=== PATIENT | female | born 1955 | race Caucasian/White ===

== ENCOUNTER → 2017-12-02 13:42 | Outpatient (POV) | payer OTHER, SELFPAY | PROVIDERS: Family Provider Family Medicine; PCP Family Medicine | DX: Z00.00 Encounter for general adult medical examination without abnormal findings (principal) ==

== ENCOUNTER → 2018-01-07 09:25 | Outpatient (POV) | payer SELFPAY | PROVIDERS: Family Provider Family Medicine; PCP Family Medicine; Visit Provider Dermatology | DX: Z00.00 Encounter for general adult medical examination without abnormal findings (principal) ==

== ENCOUNTER → 2018-02-05 09:06 | Outpatient (CLI) | payer OTHER, SELFPAY ==
--- NOTE | 2018-02-05 09:15 | XR_ITS ---
XR DEXA axial skeleton HISTORY: ITS.REASON: OSTEOPENIA ORDERING PHYSICIAN: Naya Hermosillo MD PATIENT AGE: 62 years COMPARISON: None FINDINGS: The BMD measured at the left femoral neck is 0.942 g/cm squared with a T score of -0.7 . This is considered normal according to the World Health Organization criteria. Fracture risk is low. The L1-L4 density T score of 3.0 which is normal.. IMPRESSION: Normal bone density. Recommend follow-up exam in January 2020
== END ==
PROVIDERS: Family Provider Family Medicine; PCP Family Medicine; Visit Provider Family Medicine
DX: Z13.820 Encounter for screening for osteoporosis (principal); M85.89 Other specified disorders of bone density and structure, multiple sites
CPT/HCPCS: 77080

== ENCOUNTER 2018-03-25 08:00 | Day surgery (SDC) | payer OTHER, SELFPAY ==
[2018-03-24 09:15] VITALS: BMI 34.7
[2018-03-25] VITALS (15 sets, daily range): BP systolic 115–167; BP diastolic 63–94; PULSE 57–95; RESP 12–18; TEMP 36.2–36.7; O2SAT 95–100
--- NOTE | 2018-03-25 09:20 | HMH.SCOPE ---
- Procedure: Date: 03/25/18 Procedure Performed:: Colonoscopy Indications:: Screening colonoscopy Performing Provider:: Flo Baez MD Referring Provider:: Dr. Hermosillo Sedation:: IV sedation with 9 mg of Versed and 200 mcg of fentanyl Procedure:: After informed consent was obtained, the patient was taken to the endoscopy suite. IV sedation ensued after she was transferred to the left lateral decubitus position. Digital rectal exam revealed no significant abnormality. The colonoscope was placed in position. The entire colon was evaluated. Bowel preparation was moderate to poor with large volume irrigation and suctioning used to improve visualization. A fairly tortuous colon and significant lack of relaxation made visualization somewhat difficult. Scattered sigmoid diverticulosis noted. No polypoid or mass lesions were seen. The colonoscope was carefully removed and the patient was transferred to recovery. Findings:: Bowel preparation moderate to poor Tortuous colon Significant lack of relaxation Scattered sigmoid diverticulosis Specimens:: None Recommendations:: Repeat colonoscopy in 2-3 years secondary to tortuosity, limited bowel preparation, and lack of relaxation. Timing of future colonoscopies will likely be extended to 5-10 years if no significant abnormality noted on repeat evaluation. Complications:: No immediate Estimated blood obtained (mL): 0
== END 2018-03-25 09:52 | disposition home or self-care (01) ==
LOC: OUTP 08:01
PROVIDERS: Family Provider Family Medicine; PCP Family Medicine; Visit Provider Surgery
PROC: 0DJD8ZZ Inspection of Lower Intestinal Tract, Via Natural or Artificial Opening Endoscopic (ICD-10-PCS; CPT G0121; principal; 2018-03-25 08:30)
DX: Z12.11 Encounter for screening for malignant neoplasm of colon (principal); Q43.8 Other specified congenital malformations of intestine; K57.30 Diverticulosis of large intestine without perforation or abscess without bleeding
CPT/HCPCS: G0121

== ENCOUNTER → 2019-06-14 09:11 | Outpatient (CLI) | payer MEDICARE, SELFPAY ==
--- NOTE | 2019-06-14 | CA_ITS ---
PROCEDURE: 2-D M-mode and color Doppler study INDICATIONS FOR THE TEST: Chest pain COPD Heart Murmur+ Tobacco Smoking Palpitations Fatigue Syncope Edema Hypertension+Diabetes Mellitus Rheumatic Fever SOB [place] Obesity Hyperlipidemia+ Family History HD+ Additional History PATIENT INFORMATION HEIGHT: 65 WEIGHT: 211 GENDER: Female B/P: 141/72 2-D/M-MODE INTERPRETATION: 2-D MEASUREMENTS OBSERVED VALUES IN CMS Right Ventricular Dimension (RVDd) 3.5 Interventricular Septum (Thickness)(IVsd) 1.1 Left Ventricular Internal Dimensions(LVIDd) 3.9 Left Ventricular Posterior Wall (Thickness)(LVPWd) 0.9 Aortic Root 3.2 Aortic Cusp Separation 2.3 Left Atrial Dimensions (LAD) 2.9 2D 1. Left atrium is mildly enlarged, left ventricle is normal size, mild concentric left ventricular hypertrophy, visually estimated ejection fraction 55% with no regional wall motion abnormality. 2. The right atrium and right ventricle are mildly enlarged with normal contractility. 3. The aortic valve is thickened and calcified, leaflet continue to display mobility. 4. The mitral and tricuspid valve leaflets are minimally thickened. 5. The pulmonic valve is poorly present. 6. No significant pericardial effusion noted. DOPPLER INTERROGATION: Doppler interrogation of the aortic, mitral and tricuspid valvular presence of mild mitral and tricuspid regurgitation tricuspid regurgitation jet velocity is inadequate for calculation of the right ventricular systolic pressure, grade 1 diastolic dysfunction seen with tissue Doppler evidence of pressure. CONCLUSION: 1. Mildly enlarged left atrium, normal left ventricular size, mild concentric left ventricular visually estimated ejection fraction 55% with no regional wall motion abnormality. Grade 1 diastolic dysfunction seen with tissue Doppler evidence of raised left atrial pressure. 2. Mildly enlarged with normal contractility. 3. Thickened and calcified aortic valve without aortic stenosis aortic insufficiency. 4. Mild mitral and tricuspid regurgitation 5. No significant pericardial effusion noted.
== END ==
PROVIDERS: PCP Family Medicine; Visit Provider Family Medicine
DX: I50.21 Acute systolic (congestive) heart failure (principal)
CPT/HCPCS: 93306

== ENCOUNTER → 2019-11-29 13:04 | Outpatient (POV) | payer MEDICARE, SELFPAY | PROVIDERS: Visit Provider Dermatology | DX: Z00.00 Encounter for general adult medical examination without abnormal findings (principal) ==

== ENCOUNTER → 2021-02-22 08:59 | Outpatient (CLI) | payer MEDICARE, SELFPAY ==
--- NOTE | 2021-02-22 09:11 | MM_ITS ---
PROCEDURE: MM DIG SCREENING MAMM BI W/CAD Digital Breast Tomosynthesis Included CLINICAL INDICATION: FCBD There is no personal or family history of breast cancer. COMPARISON: MG DIGMAMMS MAMMOGRAM SCREEN-CLINICAL NURSE MANAGER N/C from 02/26/2006 MG DMSB DIG MAMM-SCREEN ASH from 03/24/2014 MG DMSB DIG MAMM-SCREEN ASH W/CAD from 12/25/2016 TECHNIQUE: Standard CC and MLO images and 3D Tomosynthesis was obtained. R2 CAD reviewed. FINDINGS: Scattered fibroglandular densities are seen throughout both breast and the findings are bilateral and symmetrical. There are multiple benign-appearing calcifications in each breast most of which appear to be typical of secretory disease. There is no new or suspicious lesion in either breast and no suspicious microcalcifications. There are fatty replaced nodes in both axilla. IMPRESSION: Fibrofatty parenchyma with no suspicious lesions seen BI-RAD Category: 2 Benign Finding(s) FOLLOW-UP: 1YR 1 Year Follow-up (A letter has been sent to the patient regarding results of the study.) Dictated by: Dr. Bulmaro German MD 02/25/2021 07:36 Dr. Bulmaro German MD in [place] 02/25/2021 07:36
--- NOTE | 2021-02-22 09:55 | XR_ITS ---
PROCEDURE: XR DEXA AXIAL SKELETON CLINICAL HISTORY: OSTEOPENIA COMPARISON: CR DEXAAX XR DEXA axial skeleton from 02/05/2018 FINDINGS: The right hip BMD is 0.755 with a T-score of -0.8. The left hip BMD is 0.752 with a T-score of -0.9. The lumbar spine BMD is 1.313 with a T-score of 2.4. Previously the lowest bone density within the left femoral neck with T-score of -0.7 IMPRESSION: This patient is considered normal according to the World Health Organization criteria. Fracture risk is low. Based on these results a follow-up exam is recommended in 2 year. Dictated by: Anil Brown MD 02/23/2021 13:33 Anil Brown MD in [place] 02/23/2021 13:33
== END ==
PROVIDERS: PCP Family Medicine; Visit Provider Family Medicine
DX: Z12.31 Encounter for screening mammogram for malignant neoplasm of breast (principal); Z78.0 Asymptomatic menopausal state
CPT/HCPCS: 77063; 77067; 77080

== ENCOUNTER → 2022-01-28 07:54 | Outpatient (CLI) | payer MEDICARE, SELFPAY ==
--- NOTE | 2022-01-28 | CA_ITS ---
APPROVED REPORT Exam: Exercise Treadmill Technologist: Jeny Treviño, Ht: 5 ft 6 in Wt: 196 lbs BSA: 1.98 m2 HR: 70 bpm BP: 137/77 mmHg Medical History Medications: Aspirin,,,,, Fish Oil,,,,, BisOPROLOL Fumarate,,,,, Stress Test Details Test: Prasanth HR Resting HR: 75 bpm Max Heart Rate (APMHR): 153.974792 bpm Max HR Achieved: 157 bpm Target HR (85% APMHR): 130.471916 bpm % of APMHR: 102.61 Recovery HR: 81 bpm BP Resting BP: 147/84 mmHg Max BP: 192/60 mmHg Recovery BP: 131.0/74.0 mmHg ECG Resting ECG: NSR, rightward axis Clinical Exercise duration: 06:00 min Highest Stage Achieved: Stage 1: 1.7 mph at 10% grade. Exercise capacity: 4.6 METs Stress ECG Conclusion Exercised 6:00 into stage I of Prasanth Protocol. (stage I held to completion.) Max HR: 157 % of PM: 130% Max BP: 192/60 MET's: 4.6 Test stopped Due to: SOA, Fatigue Symptoms: No CP. Arrhythmias/Ectopy: Occ PVC. ST-T Changes: Normal ST response to exercise. Conclusion: Normal GXT. Myoview images reported separately. Test Summary REST . . . . . . . Standing REST . . . . . . . Sitting REST . . . . . . . Standing REST 07:32 0.0 0.0 75 . 147/ 84 . . Stage 1 01:00 10.0 1.7 126 . . . . Stage 1 02:00 10.0 1.7 145 . . . . Stage 1 . . . . . . . Stage held Stage 1 03:00 10.0 1.7 151 . . . . Stage 1 04:00 10.0 1.7 155 . . . . Stage 1 05:00 10.0 1.7 155 . . . . Stage 1 . . . . . . . Stage resumed Stage 1 06:00 10.0 1.7 154 . . . Stop exercise at 06:00 RECOVERY 01:00 0.0 0.0 132 . 178/ 70 . . RECOVERY 02:00 0.0 0.0 108 . 178/ 70 . . RECOVERY 03:00 0.0 0.0 103 . 166/ 69 . . RECOVERY 04:00 0.0 0.0 94 . 166/ 69 . . RECOVERY 05:00 0.0 0.0 97 . 192/ 60 . . RECOVERY 06:00 0.0 0.0 85 . 131/ 74 . . RECOVERY 06:18 0.0 0.0 92 . 131/ 74 . . Electronically signed by : Chris Velazco MD 01/28/2022 19:28:13
--- NOTE | 2022-01-28 07:57 | NM_ITS ---
APPROVED REPORT Exam: Nuclear Stress Test Indication: Chest pain, HTN, High cholesterol, Family history Patient Location: Outpatient Stress Tech: Jeny Ortiz [place] Tech:Tiffany Bernard, ARRT, RT (R)(N) Ht: 5 ft 5 in Wt: 190 lbs Bra Size: 36D HR: 75 bpm BP: 147/84 mmHg BSA: 1.94 m2 BMI: 31.6 History: Chest pain, HTN, High cholesterol, Family history Procedure: Patient exercised on Prasanth protocol 6:00 minutes and sec, resting heart rate 75 bpm, resting blood pressure 147/84 mmHg, with exercise maximum heart rate achived was 157 bpm which is 103 % of the maximum predicted heart rate and blood pressure was 192/60 mmHg. Test was stopped due to SOB. Patient denied any complaint of chest pain. Patient has poor exercise capacity, achieved 4.6 METs of workload on treadmill, the blood pressure response to exercise was Normal. Electrocardiogram Resting electrocardiogram shows sinus rhythm, with exercise there is less than 1.[address] segment depression noted from the baseline EKG. The EKG portion of the exercise Myoview is negative for ischemia. Cardiac Stress and Resting SPECT Images: Cardiac Stress and Resting SPECT images were obtained using technetium 99m Myoview 32.7 mCi stress and 10.09 mCi at rest. Gated SPECT for analysis of segmental wall motion and calculation of ejection fraction also done. Cardiac stress and resting SPECT images show uniform myocardial activity without segmental perfusion abnormality, computer derived ejection fraction is over 65% with no regional wall motion abnormality, right ventricle is normal size and contractility. Conclusion: 1. The EKG portion of the exercise Myoview is negative for ischemia, patient has poor exercise capacity achieved 4.6 METs of workload on treadmill, the blood pressure response to exercise was normal. There was no exercise-induced chest discomfort. 2. No scintigraphic evidence of reversible ischemia seen at this level of exercise, computer derived ejection fraction is over 65% with no regional wall motion abnormality, left ventricle is normal size and contractility. 3. Normal exercise Myoview study at 4.6 METs of workload. Electronically signed by : Chris Velazco MD 01/28/2022 19:31:27
--- NOTE | 2022-01-28 09:20 | HMH.ITSHM ---
Current Home Medications as stated by this patient Chika Vaughan or entry level marketing representative. []OMEGA 3 BISOPROLOL ASA ROSUVASTATIN
== END ==
PROVIDERS: PCP Family Medicine; Visit Provider Family Medicine
DX: R07.89 Other chest pain (principal); M25.512 Pain in left shoulder; I10 Essential (primary) hypertension
CPT/HCPCS: 78452; 93017; A9502